=== PATIENT | female | born 1975 | race African-American/Black ===

== ENCOUNTER 2017-05-26 01:14 | Emergency (ER) | payer MEDICAID, OTHER ==
[~2017-05-26] VITALS: Ht 165.1 cm; Wt 128.0 kg
[2017-05-26] MEDS ORDERED: ACETAMINOPHEN 500MG TABLET PO ONE (03:15)
[2017-05-26 04:38] VITALS: BP 129/84
== END 2017-05-26 05:29 | disposition home or self-care (01) ==
LOC: ER 01:14
DX: J40 Bronchitis, not specified as acute or chronic (principal); F17.290 Nicotine dependence, other tobacco product, uncomplicated
CPT/HCPCS: 71010; 81025; 99283; 99406

== ENCOUNTER 2017-12-12 19:33 | Emergency (ER) | payer MEDICAID ==
[~2017-12-12] VITALS: Ht 165.1 cm; Wt 132.0 kg
[2017-12-12 20:55] VITALS: BP 121/75
== END 2017-12-12 22:45 | disposition left against medical advice (07) ==
LOC: ER 21:31
DX: M25.522 Pain in left elbow (principal); W01.0XXA Fall on same level from slipping, tripping and stumbling without subsequent striking against object, initial encounter; Y93.89 Activity, other specified; Y92.480 Sidewalk as the place of occurrence of the external cause
CPT/HCPCS: 99281